=== PATIENT | female | born 1960 | race Caucasian/White ===

== ENCOUNTER 2017-10-07 16:37 | Emergency (ER) | payer OTHER ==
[2017-10-07 16:42] VITALS: BMI 42.0
[2017-10-07 17:30] LABS: BILIRUBIN,URINE NEGATIVE (NEGATIVE); BLOOD/HEMOGLOBIN,URINE 3+ (NEGATIVE); GLUCOSE, URINE NEGATIVE (NEGATIVE); KETONES,URINE NEGATIVE (NEGATIVE); LEUKOCYTE ESTERASE ,URINE 1+ (NEGATIVE); NITRITES,URINE NEGATIVE (NEGATIVE); PROTEIN,URINE 1+ (NEGATIVE); UROBILINOGEN,URINE NORMAL (NORMAL)
[2017-10-07] MEDS ORDERED: TORADOL 60 MG VIAL IM ONE (17:33)
--- NOTE | 2017-10-07 17:33 | DR.EXTPAIN ---
HPI - Time seen Time seen: 07:40 - PCP Primary Care Physician: ENMANUEL - HPI Comment HPI Comment: HISTORY FIBROMYALHIA. ALSO PAIN IN LOWER SUBSTERNAL/XYPHOID AREA. GETTING WORSE. PATIENT FEELING WEAK AND DIZZY. - Complaint/Symptoms Chief Complaint Doctor Comments: GENERALIZE BODYACHES WITH JOINT SWELLING TIMES 3 DAYS. Chief Complaint:: PT STATED FOR THE PAST 3 DAYS SHE HAS BEEN HAVING BAD PAIN ALL OVER FROM HER HEAD TO HER FEET. SHE ALSO STATED SHE WOKE UP THIS MORNING WITH HER EYES RED. - Nurses notes reviewed Nurses Notes Review: Yes - Source History Provided: Patient - Mode of arrival Mode of Arrival: Ambulatory - Timing Onset of Chief Complaint: 10/04/17 - Context History of: Arthritis - Associated signs and symptoms Associated Signs and Symptoms: Weakness, Pain, Swelling, Headache, Shortness of Breath, Other (CHEST PAIN) PMH - PMH Past Medical History: No Past Surgical History: Yes Surgical History: Cholecystectomy, [employer] Surgery - Family History History of Family Medical Conditions: Yes Family Medical History: Hypertension - Social History Does patient currently use any type of tobacco product: No Have you used tobacco products in the last 12 months: No Type of Tobacco Use: None Does any household member use tobacco: No Alcohol Use: None Do you use any recreational Drugs:: No Lives With: Family Lives Where: Home - infectious screening In the last 2 months have you had wt loss of >10#?: NO Have you had fever, night sweats or hemotysis?: No Have you traveled outside the country in the last 6 months?: No Isolation: Standard ROS - Review of Systems Constitutional: Weakness, Fatigue. negative: Chills, Fever Eyes: Other (PERIORBITAL SWELLING IN THE MORNINGS). negative: Eye Pain, Discharge ENTM: negative: Ear Pain, Nose Discharge, Nose Congestion, Throat Pain Respiratoy: Short of Breath. negative: Productive Cough, Wheezing, Hemoptysis Cardiovascular: Edema. negative: Chest Pain Gastrointestinal/Abdominal: negative: Abdominal Pain, Diarrhea, Nausea, Vomiting Genitourinary: negative: Dysuria, Frequency, Hematuria Neurological: Headache, Weakness, Dizziness Musculoskeletal: Joint Pain, Joint Swelling, Muscle Pain Integumentary: No Symptoms Reported Hematologic/Lymphatic: No Symptoms Reported Endocrine: No Symptoms Reported All Other Systems: Reviewed and Negative PE - Vital Signs Vitals: Temperature 98.2 F Pulse Rate 100 Respiratory Rate 16 Blood Pressure [Left Arm] 128/78 Blood Pressure 138/75 O2 Sat by Pulse Oximetry 99 - General Limitations: No Limitations General Appearance: Alert - Head Head Exam: Normal Inspection - Eyes Eye exam: Normal Appearance - ENT ENT Exam: Normal External Ear Exam - Neck Neck Exam: Trachea Midline - Chest Chest Inspection: Symmetric Chest Wall Rise - Respiratory Respiratory Exam: Normal Lung Sounds Bilat Respiratory Exam: Bilateral Rhonchi, Lower Rhonchi - Cardiovascular Cardiovascular Exam: Regular Rate, Normal Rhythm, Normal Heart Sounds - Abdominal Exam Abdominal Exam: Normal Bowel Sounds, Soft. negative: Tenderness - Extremities Extremities Exam: Edema, Joint Swelling - Upper Extremities Upper Ext. Vascular Exam: Capillary Refill - Lower Extremities Neurovascular/Tendon Exam: Normal Capillary Refill Gait Exam: Observed and Normal - Back Back Exam: Normal Inspection - Neurological Neurological Exam: Alert, Oriented X3 - Psychiatric Psychiatric Exam: Normal Affect, Normal Mood - Skin Skin Exam: Erythema MDM - Differential Diagnosis Differential Diagnosis: Other (ARTHRITIS, FIBROMYALGIA, UTI, ELECTROLYTE IMBALANCE.) Course - Treatment Treatment: SEE ORDERS. IM DECADRON AND TORADOL IN ED. - Reevaluation 1st: Improved (PAIN DECREASING.) - Education/Counseling Education/Counseling: Patient, Education Educated On: Diagnosis, Needs for Follow Up ROR - Labs Reviewed Laboratory Results Reviewed?: Yes Result Diagrams: 10/07/17 18:20 10/07/17 18:20 Laboratory: WBC 13.8 X10^3/uL (3.6-10.0) H 10/07/17 18:20 RBC 4.26 X10^6/uL (3.5-5.4) 10/07/17 18:20 Hgb 13.0 g/dL (12.0-16.0) 10/07/17 18:20 Hct 38.0 % (36.0-47.0) 10/07/17 18:20 MCV 89.3 fL (80.0-100.0) 10/07/17 18:20 MCH 30.5 pg (27.0-34.0) 10/07/17 18:20 MCHC 34.1 g/dL (33.0-35.0) 10/07/17 18:20 RDW 12.9 % (11.6-16.5) 10/07/17 18:20 Plt Count 314 X10^3/uL (150.0-450.0) 10/07/17 18:20 MPV 7.1 fL (7.4-11.0) L 10/07/17 18:20 Neut % (Auto) 69.1 % (42.0-75.0) 10/07/17 18:20 Lymph % (Auto) 21.9 % (21.0-51.0) 10/07/17 18:20 [place] % (Auto) 6.4 % (0.0-13.0) 10/07/17 18:20 Eos % (Auto) 1.3 % (0.9-2.9) 10/07/17 18:20 Baso % (Auto) 1.3 % (0.2-1.0) H 10/07/17 18:20 Neut # (Auto) 9.5 x10^3/uL (2.2-4.8) H 10/07/17 18:20 Lymph # (Auto) 3.0 X10^3/uL (1.3-2.9) H 10/07/17 18:20 [place] # (Auto) 0.9 x10^3/uL (0.3-0.8) H 10/07/17 18:20 Eos # (Auto) 0.2 x10^3/uL (0.0-0.2) 10/07/17 18:20 Baso # (Auto) 0.2 X10^3/uL (0.0-0.1) H 10/07/17 18:20 Absolute Nucleated RBC 0.0 /100WBC 10/07/17 18:20 Sodium 139 mmol/L (136-145) 10/07/17 18:20 Corrected Sodium TNP 10/07/17 18:20 Potassium 3.6 mmol/L (3.5-5.1) 10/07/17 18:20 Chloride 101 mmol/L (98-107) 10/07/17 18:20 Carbon Dioxide 28.1 mmol/L (21-32) 10/07/17 18:20 BUN 11 mg/dL (7-18) 10/07/17 18:20 Creatinine 0.75 mg/dL (0.55-1.02) 10/07/17 18:20 Est GFR (MDRD) Af Amer > 60 (>60) 10/07/17 18:20 Est GFR (MDRD) Non-Af > 60 (>60) 10/07/17 18:20 Glucose 93 mg/dL (65-99) 10/07/17 18:20 Calcium 8.7 mg/dL (8.5-10.1) 10/07/17 18:20 Corrected Calcium TNP 10/07/17 18:20 Total Bilirubin 0.60 mg/dL (0.2-1.0) 10/07/17 18:20 AST 16 Units/L (15-37) 10/07/17 18:20 ALT 23 Units/L (12-78) 10/07/17 18:20 Alkaline Phosphatase 110 Units/L (46-116) 10/07/17 18:20 Total Protein 8.1 g/dL (6.4-8.2) 10/07/17 18:20 Albumin 3.5 g/dL (3.4-5.0) 10/07/17 18:20 Globulin 4.6 g/dL (2.5-4.5) H 10/07/17 18:20 Albumin/Globulin Ratio 0.8 Ratio (1.1-2.1) L 10/07/17 18:20 Specimen Type Clean catch urine 10/07/17 17:26 Urine Color Yellow (YELLOW) 10/07/17 17:26 Urine Appearance Clear (CLEAR) 10/07/17 17:26 Urine pH 5.0 (5.0 - 8.0) 10/07/17 17:26 Ur Specific [place] 1.025 (1.000-1.030) 10/07/17 17:26 Urine Protein 1+ (NEGATIVE) 10/07/17 17:26 Urine Glucose (UA) Negative (NEGATIVE) 10/07/17 17:26 Urine Ketones Negative (NEGATIVE) 10/07/17 17:26 Urine Occult Blood 3+ (NEGATIVE) 10/07/17 17:26 Urine Nitrite Negative (NEGATIVE) 10/07/17 17:26 Urine Bilirubin Negative (NEGATIVE) 10/07/17 17:26 Urine Urobilinogen Normal (NORMAL) 10/07/17 17:26 Ur Leukocyte Esterase 1+ (NEGATIVE) 10/07/17 17:26 Urine RBC 3-5 /HPF (NONE SEEN) 10/07/17 17:26 Urine WBC 3-5 /HPF (NONE SEEN) 10/07/17 17:26 Ur Squamous Epith Cells Few /HPF (NEGATIVE) 10/07/17 17:26 Urine Bacteria 1+ /HPF (NEGATIVE) 10/07/17 17:26 Urine Mucus Few /HPF (NEGATIVE) 10/07/17 17:26 Ur Culture Indicated? No/not indicated 10/07/17 17:26 - Diagnosis Discharge Problem: Neuropathic pain, Musculoskeletal pain - Discharge Plan Disposition: 01 HOME, SELF-CARE Condition: Stable Prescriptions: Acetaminophen/Codeine Tab [TYLENOL w/CODEINE #3 (300 MG/30 MG) *] 1 tab PO Q6H PRN #15 tab PRN Reason: Pain Ibuprofen [MOTRIN TAB 800 MG *] 800 mg PO Q8H PRN #30 tab PRN Reason: Pain/Inflammation Methylprednisolone Dosepak 4Mg [MEDROL DOSEPAK (4 mg tab x 21)] 1 jammie PO ONCE # 1 jammie - Follow ups/Referrals Follow ups/Referrals: FREYA SINGER [Primary Care Provider] - 2 days - Instructions Instructions: Neuropathic Pain, Musculoskeletal Pain Additional Instructions: RETURN TO ED IF WORSE.
[2017-10-07] MEDS ORDERED: DECADRON INJ IM ONE (17:35)
[2017-10-07] MEDS ORDERED: TORADOL 60 MG VIAL ONE (17:36)
[2017-10-07] MEDS ORDERED: DECADRON INJ ONE (17:36)
[2017-10-07 17:37] LABS: APPEARANCE,URINE CLEAR (CLEAR); BACTERIA,URINE 1+ /HPF (NEGATIVE); COLOR,URINE YELLOW (YELLOW); SQUAMOUS EPITHELIAL CELL,UR FEW /HPF (NEGATIVE)
[2017-10-07 17:38] LABS: MUCUS,URINE FEW /HPF (NEGATIVE)
[2017-10-07 18:28] LABS: BASOPHILS # (AUTO) 0.2 X10^3/uL (0.0-0.1); BASOPHILS % (AUTO) 1.3 % (0.2-1.0); EOSINOPHILS # (AUTO) 0.2 x10^3/uL (0.0-0.2); EOSINOPHILS % (AUTO) 1.3 % (0.9-2.9); LYMPHOCYTES % (AUTO) 21.9 % (21.0-51.0); MEAN CORPUSCULAR HEMOGLOBIN 30.5 pg (27.0-34.0); MEAN CORPUSCULAR HGB CONC 34.1 g/dL (33.0-35.0); MEAN CORPUSCULAR VOLUME 89.3 fL (80.0-100.0); MEAN PLATELET VOLUME 7.1 fL (7.4-11.0); MONOCYTES # (AUTO) 0.9 x10^3/uL (0.3-0.8); MONOCYTES % (AUTO) 6.4 % (0.0-13.0); NEUTROPHILS # (AUTO) 9.5 x10^3/uL (2.2-4.8); NEUTROPHILS % (AUTO) 69.1 % (42.0-75.0); PLATELET COUNT 314 X10^3/uL (150.0-450.0); RED BLOOD COUNT 4.26 X10^6/uL (3.5-5.4); RED CELL DISTRIBUTION WIDTH 12.9 % (11.6-16.5); WHITE BLOOD COUNT 13.8 X10^3/uL (3.6-10.0)
[2017-10-07 18:37] LABS: ALANINE AMINOTRANSFERASE 23 Units/L (12-78); ALBUMIN 3.5 g/dL (3.4-5.0); ALKALINE PHOSPHATASE 110 Units/L (46-116); ASPARTATE AMINO TRANSFERASE 16 Units/L (15-37); BLOOD UREA NITROGEN 11 mg/dL (7-18); CALCIUM 8.7 mg/dL (8.5-10.1); CARBON DIOXIDE 28.1 mmol/L (21-32); CHLORIDE 101 mmol/L (98-107); CREATININE 0.75 mg/dL (0.55-1.02); SODIUM 139 mmol/L (136-145); TOTAL PROTEIN 8.1 g/dL (6.4-8.2); eGFR BLACK RACES > 60 (>60); eGFR NON BLACK RACES > 60 (>60)
[2017-10-07 19:07] VITALS: BP 128/78
== END 2017-10-07 19:08 | disposition home or self-care (01) ==
LOC: ER 16:55
DX: M79.1 Myalgia (principal); M79.2 Neuralgia and neuritis, unspecified
CPT/HCPCS: 36415; 80053; 81001; 85025; 96372; 99283; J1100; J1885